=== PATIENT | female | born 1970 | race Caucasian/White ===

== ENCOUNTER → 2017-12-05 | Outpatient (CLI) | payer BC ==
--- NOTE | 2017-12-08 07:47 | MM ---
Reason for exam: screening (asymptomatic). Last mammogram was performed 1 year and 5 months ago. History: Benign US right guided VAD of the right breast, September 04, 2010. Cancelled Right US Needle Biopsy of the right breast, September 26, 2006. Took hormonal contraceptives for 14 years beginning at age 18. Physical Findings: A clinical breast exam by your physician is recommended on an annual basis and results should be correlated with mammographic findings. MG 3D Diag Mammo W/Cad ALESHA Bilateral CC and MLO view(s) were taken. Prior study comparison: July 03, 2016, bilateral MG 3d screening mammo w/cad. March 03, 2015, bilateral MG screening mammo w CAD. The breast tissue is heterogeneously dense. This may lower the sensitivity of mammography. Previous mammotome biopsy in the right breast. There is chronic nodularity in the right breast at clip. There is no discrete abnormality. These results were verbally communicated with the patient and result sheet given to the patient on 12/05/17. ASSESSMENT: Benign, BI-RAD 2 RECOMMENDATION: Routine screening mammogram of both breasts in 1 year.
== END | disposition home or self-care (01) ==
LOC: RADMAMWWP 14:16
PROVIDERS: ATTEND Family Medicine
DX: N60.19 Diffuse cystic mastopathy of unspecified breast (principal); R59.0 Localized enlarged lymph nodes; Z01.419 Encounter for gynecological examination (general) (routine) without abnormal findings
CPT/HCPCS: 77066; G0279

== ENCOUNTER → 2019-02-26 | Outpatient (CLI) | payer BC ==
--- NOTE | 2019-03-01 10:07 | MM ---
Reason for exam: screening (asymptomatic). Last mammogram was performed 1 year and 3 months ago. History: Benign US right guided VAD of the right breast, September 04, 2010. Cancelled Right US Needle Biopsy of the right breast, September 26, 2006. Took hormonal contraceptives for 14 years beginning at age 18. Physical Findings: A clinical breast exam by your physician is recommended on an annual basis and results should be correlated with mammographic findings. MG 3D Screening Mammo W/Cad Bilateral CC and MLO view(s) were taken. Prior study comparison: December 05, 2017, bilateral MG 3d diag mammo w/cad ALESHA. July 03, 2016, bilateral MG 3d screening mammo w/cad. The breast tissue is heterogeneously dense. This may lower the sensitivity of mammography. Focal asymmetry upper ouwer left breast middle third position. ASSESSMENT: Incomplete: need additional imaging evaluation, BI-RAD 0 RECOMMENDATION: Special view mammogram of the left breast. Manage patient on a clinical basis. If lesion persists on supplemental views, image directed ultrasound is recommended. [facility] will attempt to contact patient to return for supplemental views and ultrasound if indicated.
== END | disposition home or self-care (01) ==
LOC: RADMAMWWP 09:43
PROVIDERS: ATTEND Family Medicine
DX: Z12.31 Encounter for screening mammogram for malignant neoplasm of breast (principal)
CPT/HCPCS: 77063; 77067

== ENCOUNTER → 2019-03-09 | Outpatient (CLI) | payer BC ==
--- NOTE | 2019-03-10 13:27 | MM ---
Reason for exam: additional evaluation requested from abnormal screening. Last mammogram was performed less than 1 month ago. History: Benign US right guided VAD of the right breast, September 04, 2010. Cancelled Right US Needle Biopsy of the right breast, September 26, 2006. Took hormonal contraceptives for 14 years beginning at age 18. Physical Findings: Nurse did not find any significant physical abnormalities on exam. (nurse em). MG 3D Work Up W/Cad LT Spot compression CC, spot compression MLO, and LM view(s) were taken of the left breast. Prior study comparison: February 26, 2019, bilateral MG 3d screening mammo w/cad. December 05, 2017, bilateral MG 3d diag mammo w/cad ALESHA. The breast tissue is heterogeneously dense. This may lower the sensitivity of mammography. The previously seen left breast abnormality resolves on additional views and appears as fibroglandular tissue compatible with summation. No suspicious abnormality. ASSESSMENT: Benign, BI-RAD 2 RECOMMENDATION: Return to routine screening mammogram schedule for both breasts. Patient was given results on 03/09/19.
== END | disposition home or self-care (01) ==
LOC: RADMAMWWP 08:58
PROVIDERS: ATTEND Family Medicine
DX: R92.8 Other abnormal and inconclusive findings on diagnostic imaging of breast (principal)
CPT/HCPCS: 77061; 77065

== ENCOUNTER → 2020-03-27 | Outpatient (CLI) | payer BC | END | disposition home or self-care (01) | LOC: LABWHC1 09:06 | PROVIDERS: ATTEND Family Medicine | DX: Z20.828 Contact with and (suspected) exposure to other viral communicable diseases (principal) | CPT/HCPCS: U0003; C9803 ==

== ENCOUNTER → 2021-05-16 | Outpatient (CLI) | payer BC ==
--- NOTE | 2021-05-16 13:37 | MM ---
Reason for exam: screening (asymptomatic). Last mammogram was performed 2 years and 2 months ago. History: Benign US right guided VAD of the right breast, September 04, 2010. Cancelled Right US Needle Biopsy of the right breast, September 26, 2006. Took hormonal contraceptives for 14 years beginning at age 18. Physical Findings: A clinical breast exam by your physician is recommended on an annual basis and results should be correlated with mammographic findings. MG 3D Screening Mammo W/Cad Bilateral CC and MLO view(s) were taken. XCCL view(s) were taken of the right breast. Prior study comparison: February 26, 2019, bilateral MG 3d screening mammo w/cad. December 05, 2017, bilateral MG 3d diag mammo w/cad ALESHA. The breast tissue is heterogeneously dense. This may lower the sensitivity of mammography. Finding: There is a 7 mm circumscribed oval mass located 3 cm from the nipple in the slight upper quadrant, anterior, middle, central position of the left breast. Previous mammotome biopsy in the right breast. There is a chronic nodularity in the right breast at clip. ASSESSMENT: Incomplete: need additional imaging evaluation, BI-RAD 0 RECOMMENDATION: Ultrasound of the left breast. [facility] will attempt to contact patient to return for ultrasound.
== END | disposition home or self-care (01) ==
LOC: RADMAMWWP 06:59
PROVIDERS: ATTEND Family Medicine
DX: Z12.31 Encounter for screening mammogram for malignant neoplasm of breast (principal)
CPT/HCPCS: 77063; 77067

== ENCOUNTER → 2021-05-25 | Outpatient (CLI) | payer BC ==
--- NOTE | 2021-05-25 13:39 | USB ---
Reason for exam: additional evaluation requested from abnormal screening. History: Benign US right guided VAD of the right breast, September 04, 2010. Cancelled Right US Needle Biopsy of the right breast, September 26, 2006. Took hormonal contraceptives for 14 years beginning at age 18. Physical Findings: Nurse did not find any significant physical abnormalities on exam. US Breast Workup Limited LT Left limited breast ultrasound including focal area of concern, retroareolar and axilla demonstrates a 0.5 x 0.4 x 0.7cm oval, cystic, bilobed lesion at 2 o'clock, simple cyst corresponds to mammographic abnormality. These results were verbally communicated with the patient and result sheet given to the patient on 05/25/21. ASSESSMENT: Benign, BI-RAD 2 RECOMMENDATION: Return to routine screening mammogram schedule for both breasts.
== END | disposition home or self-care (01) ==
LOC: RADUSWWP 12:54
PROVIDERS: ATTEND Family Medicine
DX: R92.8 Other abnormal and inconclusive findings on diagnostic imaging of breast (principal)

== ENCOUNTER → 2021-07-21 | Outpatient (CLI) | payer BC ==
--- NOTE | 2021-07-21 10:13 | MR ---
MR brain without contrast HISTORY: Atypical facial pain, G 50.1 Multiplanar multisequence imaging through the brain There is no restricted diffusion. There is no hemorrhage or hydrocephalus. Cerebellopontine angles, c orpus callosum, pituitary, cervical medullary junction are within normal limits. Orbits show symmetri c appearance. There are expected vascular flow voids. Brain signal is maintained. Paranasal sinuses a nd mastoid air cells as visualized are remarkable for minimal inflammatory change present along the r egion of the right sphenoid sinus, possible polyp or inflammatory change in the right maxillary sinus . IMPRESSION: There is some mild inflammatory change seen at the level of the sphenoid sinus on the rig ht, right maxillary sinus.
--- NOTE | 2021-07-21 10:56 | MR ---
EXAMINATION TYPE: MR angio head wo con DATE OF EXAM: 07/21/2021 COMPARISON: MR brain same date HISTORY: Atypical facial pain, cerebral aneurysm TECHNIQUE: Time of flight images focusing on the [place] were performed without contrast. Th ree-dimensional reconstructions. FINDINGS: Anterior, posterior circulation are intact. No evident aneurysm, embolus, dissection, or si gnificant stenosis. IMPRESSION: Normal [place] MRA
== END | disposition home or self-care (01) ==
LOC: RADMRIMAIN 09:19
PROVIDERS: ATTEND Psychiatry & Neurology Neurology
DX: G50.1 Atypical facial pain (principal); I67.1 Cerebral aneurysm, nonruptured
CPT/HCPCS: 70544; 70551

== ENCOUNTER → 2022-04-04 | Outpatient (CLI) | payer BC ==
--- NOTE | 2022-04-05 07:32 | US ---
EXAMINATION TYPE: US pelvic complete DATE OF EXAM: 04/04/2022 COMPARISON: NONE CLINICAL HISTORY: N95.8 MENOPAUSAL AND PERIMENOPAUSAL DISORDERS. Lower abdominal pain. Hx C section. Hx endometrial ablation around 2008. . TECHNIQUE: Transabdominal (TA). Transabdominal sonographic images of the pelvis were acquired. Tra nsvaginal sonographic images were not performed, patient does not want transvaginal exam at this time . Date of LMP: At time of ablation around 2008. EXAM MEASUREMENTS: Uterus: 6.0 x 4.3 x 2.9 cm Endometrial Stripe: Not well seen. Right Ovary: 2.7 x 1.6 x 1.6 cm Left Ovary: Not seen. 1. Uterus: Anteverted Hypoechoic area seen uterus right: 1.6 x 1.7 x 1.6 cm. 2. Endometrium: Not well seen. 3. Right Ovary: Anechoic area seen right ovary: 1.3 x 0.7 x 1.0 cm. 4. Left Ovary: Not seen. 5. Bilateral Adnexa: Appears wnl. 6. Posterior cul-de-sac: Appears wnl. IMPRESSION: 1. Uterine fibroid. 2. Small right ovarian cyst. Follow-up is recommended.
--- NOTE | 2022-04-05 07:33 | US ---
EXAMINATION TYPE: US kidneys/renal and bladder DATE OF EXAM: 04/04/2022 COMPARISON: NONE CLINICAL HISTORY: N1330 UNSPECIFIED HYDRONEPHROSIS. Unspecified hydronephrosis. Patient states they s aw hydronephrosis within the left kidney on an outside CT. EXAM MEASUREMENTS: Right Kidney: 10.2 x 6.2 x 4.5 cm Left Kidney: 11.2 x 5.4 x 4.9 cm Right Kidney: No hydronephrosis or masses seen Left Kidney: No hydronephrosis or masses seen Bladder: Appears anechoic. Bilateral Jets seen: Yes IMPRESSION: 1. Normal retroperitoneal ultrasound. No hydronephrosis is identified.
== END | disposition home or self-care (01) ==
LOC: RADUSWWP 15:36
PROVIDERS: ATTEND Family Medicine
DX: N95.8 Other specified menopausal and perimenopausal disorders (principal); R10.30 Lower abdominal pain, unspecified; N13.30 Unspecified hydronephrosis
CPT/HCPCS: 76770; 76856

== ENCOUNTER → 2022-04-19 | Outpatient (CLI) | payer BC ==
--- NOTE | 2022-04-19 09:03 | US ---
EXAMINATION TYPE: US transvaginal DATE OF EXAM: 04/19/2022 COMPARISON: CLINICAL HISTORY: R10.30 , N95.8. Left sided pelvic pain for 2 months. History of ablation 10 years a go. TECHNIQUE: Transvaginal (TV) Transvaginal sonographic images of the pelvis were acquired EXAM MEASUREMENTS: Uterus: 4.0 x 2.2 c 2.7 cm Endometrial Stripe: .25 cm Right Ovary: 2.0 x 1.3 x 1.4 cm Left Ovary: 1.3 x .93 x 1.8 cm 1. Uterus: Retroverted Heterogeneous. Hypoechoic area anterior lower uterine segment .79 x .98 x .7 9cm. Hypoechoic area midline anterior to endometrium .68 x .82 x .61cm. Hypoechoic area anterior fun dus .57 x .48 x .49cm. 2. Endometrium: Scattered echogenic foci seen within endometrium. No other masses or other abnormal ities visualized 3. Right Ovary: Anechoic mass with septation visualized measuring 1.2 x .88 x .85cm. 4. Left Ovary: Limited by overlying and adjacent bowel gas. No masses or other abnormalities visual ized 5. Bilateral Adnexa: wnl 6. Posterior cul-de-sac: wnl Exam performed by RS IMPRESSION: 1. Uterine heterogeneity is nonspecific. Suspect small leiomyomatous change.
== END | disposition home or self-care (01) ==
LOC: RADUSWWP 07:40
PROVIDERS: ATTEND Family Medicine
DX: N95.8 Other specified menopausal and perimenopausal disorders (principal); R10.30 Lower abdominal pain, unspecified
CPT/HCPCS: 76830

== ENCOUNTER 2022-06-25 08:40 | Day surgery (SDC) | payer BC ==
[2022-06-24 08:34] VITALS: BMI 21.9
[~2022-06-25 08:40] MED LIST: LACTATED RINGERS 1,000 ML IV SCH
[2022-06-25 09:07] VITALS: RESP 16; TEMP 97.3
[2022-06-25] MEDS ORDERED: LIDOCAINE 1% (10MG/ML) FOR IV START INTRADERMA ONE (09:21)
[2022-06-25] MEDS ORDERED: PROPOFOL 10 MG/ML 20 ML VIAL IV ONE (09:55)
[2022-06-25] MEDS ORDERED: LIDOCAINE 2% INJ 20 MG/ML (2 ML VIAL) ONE (09:55)
--- NOTE | 2022-06-25 10:18 | P.PCN ---
Date of Procedure: 06/25/22 Procedure(s) Performed: BRIEF HISTORY: Patient is a 51-year-old pleasant female scheduled for an elective colonoscopy as a part of evaluation of lower abdominal pain and change in bowel habits for the last 1 month duration. PROCEDURE PERFORMED: Colonoscopy. PREOPERATIVE DIAGNOSIS: Lower abdominal pain and change in bowel habits. IV sedation per Anesthesia. PROCEDURE: After informed consent was obtained, the patient, was brought into the endoscopy unit. IV sedation was administered by Anesthesia under continuous monitoring. Digital rectal examination was normal. Initially the Olympus CF-160 flexible video colonoscope was then inserted in the rectum, gradually advanced into the cecum without any difficulty. Careful examination was performed as the scope was gradually being withdrawn. Ileocecal valve and the appendiceal orifice were visualized and appeared normal. Prep was fair.. Mucosa of the cecum, ascending colon, transverse colon, descending colon, sigmoid colon, and rectum appeared normal. Retroflexion was performed in the rectum and no lesions were seen. The patient tolerated the procedure well. IMPRESSION: Normal-appearing colon from rectum to cecum no evidence of colorectal neoplasia . RECOMMENDATIONS: Findings of this examination were discussed with the patient as well as a family. She was advised to diet, take fiber supplements a regular basis. Recommend repeat screening colonoscopy in 10 years..
[2022-06-25] MEDS ORDERED: IV FLUID CONTINUATION 1,000 ML IV ONE (10:20)
[2022-06-25 10:29] VITALS: PULSE 75
[2022-06-25 10:51] VITALS: BP 159/98
== END 2022-06-25 10:54 | disposition home or self-care (01) ==
LOC: ORWHC2ENDO 08:40
PROVIDERS: ATTEND Internal Medicine Gastroenterology
DX: Z12.11 Encounter for screening for malignant neoplasm of colon (principal); Z88.2 Allergy status to sulfonamides
CPT/HCPCS: 81025; 45378; J2704; J2001

== ENCOUNTER → 2023-07-08 | Outpatient (CLI) | payer BC ==
--- NOTE | 2023-07-09 09:47 | MM ---
Reason for Exam: Screening (asymptomatic). Last mammogram was performed 2 year(s) and 1 month(s) ago. Patient History: Menarche at age 13. First Full-Term at age 31. Late child-bearing (after 31). Perimenopausal. Hormonal Contraceptives, starting at age 18 for 14 years. 09/04/2010, Benign Core Biopsy on the right side. 09/26/2006, Cancelled Right US Needle Biopsy on the right side. Risk Values: Mariya 5 year model risk: 1.6%. NCI Lifetime model risk: 14.0%. Prior Study Comparison: 02/26/2019 Bilateral Screening Mammogram, [facility]. 03/09/2019 Left Diagnostic Mammogram, [facility]. 05/16/2021 Bilateral Screening Mammogram, [facility]. Tissue Density: The breast tissue is heterogeneously dense. This may lower the sensitivity of mammography. Findings: Analyzed By CAD. There is no suspicious group of microcalcifications or new suspicious mass. Overall Assessment: Benign, BI-RAD 2 Management: Screening Mammogram of both breasts in [address] [facility] will attempt to contact patient to return for supplemental views and ultrasound if indicated. Patient should continue monthly self-breast exams. A clinical breast exam by your physician is recommended on an annual basis. This exam should not preclude additional follow-up of suspicious palpable abnormalities. Note on Mariya scores and lifetime risk: 1. A Mariya score greater than 3% is considered moderate risk. If this is the case, consider specialist referral to assess eligibility for a risk reducing agent. 2. If overall lifetime risk for the development of breast cancer is 20% or higher, the patient may qualify for future screening with alternating mammogram and breast MRI. Electronically signed and approved by: Sekou Andrade DO
== END | disposition home or self-care (01) ==
LOC: RADMAMWWP 13:19
PROVIDERS: ATTEND Family Medicine
DX: Z12.31 Encounter for screening mammogram for malignant neoplasm of breast (principal)
CPT/HCPCS: 77063; 77067

== ENCOUNTER → 2023-12-15 | Outpatient (CLI) | payer BC ==
--- NOTE | 2023-12-15 11:24 | CT ---
EXAMINATION TYPE: CT soft tissue neck w con CT DLP: 317.6 mGycm, Automated exposure control for dose reduction was used. DATE OF EXAM: 12/15/2023 11:04 AM COMPARISON: None. CLINICAL INDICATION:Female, 53 years old with history of M54.2 neck pain; PHH, neck / ear pain. TECHNIQUE: Standard enhanced CT of the neck. Axial sections with coronal and sagittal reformats were obtained. Contrast used:100 cc mL of Isovue 300 with IV Contrast, (None if empty) Oral contrast used: (None if empty) FINDINGS: Brain: Visualized portions are grossly unremarkable. The temporal bones are symmetric without evidenc e of acute process. Mastoid air cells are clear the middle ears are clear. Orbits: Unremarkable Sinuses: Grossly unremarkable. Spaces of the neck: Clear and symmetric. The mucosal and parapharyngeal spaces are symmetric and ta r. Musculoskeletal: No acute osseous pathology. Lymph nodes: Multiple nonenlarged lymph nodes are seen along both anterior chains of the neck. Vascular structures: Visualized major arteries are patent without evidence of aneurysm. Thoracic Inlet/airway: Airway is patent. The lung apices are clear. Soft tissues/Thyroid: Thyroid and remainder of the soft tissues are unremarkable. Other: none. IMPRESSION No evidence for mass or acute process. The mucosa and parapharyngeal spaces are symmetric. If there r emains concern consider evaluation with direct visualization.
== END | disposition home or self-care (01) ==
LOC: RADCTMAIN 10:15
PROVIDERS: ATTEND Otolaryngology
DX: J31.2 Chronic pharyngitis (principal); M54.2 Cervicalgia
CPT/HCPCS: 70491; Q9967

== ENCOUNTER → 2024-10-29 | Outpatient (CLI) | payer BC ==
--- NOTE | 2024-10-29 10:34 | MM ---
Reason for Exam: Screening (asymptomatic). Last mammogram was performed 1 year(s) and 4 month(s) ago. Patient History: Menarche at age 13. First Full-Term at age 31. Late child-bearing (after 31). Postmenopausal. Hormonal Contraceptives, starting at age 18 for 14 years. 09/04/2010, Benign Core Biopsy on the right side. 09/26/2006, Cancelled Right US Needle Biopsy on the right side. Risk Values: Mariya 5 year model risk: 1.8%. NCI Lifetime model risk: 13.5%. Prior Study Comparison: 03/09/2019 Left Diagnostic Mammogram, [facility]. 05/16/2021 Bilateral Screening Mammogram, [facility]. 07/08/2023 Bilateral MG 3D screening mammo w/cad, [facility]. Tissue Density: The breasts are heterogeneously dense, which may obscure small masses. Findings: Analyzed By CAD. A few tiny benign appearing round calcifications bilaterally are redemonstrated. Mammotome biopsy clip right breast posteriorly is outside field of view on today's study. There is no suspicious new group of microcalcifications or new suspicious mass in either breast. Overall Assessment: Benign, BI-RAD 2 Management: Screening Mammogram of both breasts in 1 year. Some advise annual bilateral breast ultrasound surveillance in patients with background dense tissue. Patient should continue monthly self-breast exams. A clinical breast exam by your physician is recommended on an annual basis. This exam should not preclude additional follow-up of suspicious palpable abnormalities. Note on Mariya scores and lifetime risk: 1. A Mariya score greater than 3% is considered moderate risk. If this is the case, consider specialist referral to assess eligibility for a risk reducing agent. 2. If overall lifetime risk for the development of breast cancer is 20% or higher, the patient may qualify for future screening with alternating mammogram and breast MRI. [facility], , 10/29/2024 10:31 AM. Electronically signed and approved by: Denis Banuelos M.D.
== END | disposition home or self-care (01) ==
LOC: RADMAMWWP 09:07
PROVIDERS: ATTEND Family Medicine
DX: Z12.31 Encounter for screening mammogram for malignant neoplasm of breast (principal); R92.333 Mammographic heterogeneous density, bilateral breasts; Z78.0 Asymptomatic menopausal state; Z92.0 Personal history of contraception
CPT/HCPCS: 77063; 77067